=== PATIENT | male | born 1980 | race Caucasian/White ===

== ENCOUNTER 2017-05-01 19:02 | Emergency (ER) | payer OTHER ==
--- NOTE | 2017-05-01 19:44 | ED Physician Documentation ---
PD HPI URI - Stated complaint Stated Complaint: L EAR PX - Chief complaint Chief Complaint: Heent - History obtained from History obtained from: Patient - History of Present Illness Timing - onset: How many days ago (6) Timing duration: Days (6) Timing details: Gradual onset, Still present (had left ear pain and fullness about a week after having flu-like/URI symptoms. Seen by PCP and Dx with ear infection and Rx Augmentin. He says he did not improved and is feeling worse pain today. Had some drainage from ear at initial visit and this has continued and gotten whiter/cloudier the past day.) Associated symptoms: Ear pain, Swollen nodes. No: Fever, Nasal congestion, Rhinorrhea, Sore throat, Dry cough Contributing factors: Sick contact (his son had Influenza a couple weeks ago and he presumed he had that 2 weeks ago and was improving from that when got the left ear pain start.) Improves by: No: Medication Similar symptoms before: Has not had sx before Recently seen: Clinic (6 days ago with Rx Augmentin for left OM.) Review of Systems Constitutional: denies: Fever Ears: reports: Loss of hearing, Ear pain, Drainage/discharge. denies: Tinnitus/ ringing Nose: denies: Rhinorrhea / runny nose, Congestion Throat: denies: Sore throat Respiratory: denies: Cough GI: denies: Nausea, Vomiting, Diarrhea Skin: denies: Rash, Lesions PD PAST MEDICAL HISTORY - Past Medical History Past Medical History: No - Past Surgical History Past Surgical History: Yes Ortho: Other HEENT: Tonsil/Adenoidectomy - Present Medications Home Medications: Ambulatory Orders Medication Instructions Recorded Confirmed Amox/Clav 875/125 [Augmentin] 1 each PO Q12H 05/01/17 05/01/17 Dexamethasone [Decadron] 4 mg PO DAILY #5 tablet 05/01/17 Doxycycline Monohydrate 100 mg PO BID #14 tablet 05/01/17 HYDROcod/ACETAM 5/325 [[place] 5/325] 1 tab PO Q6H PRN #15 tablet 05/01/17 - Allergies Allergies/Adverse Reactions: Allergies Allergy/AdvReac Type Severity Reaction Status Date / Time No Known Drug Allergies Allergy Verified 05/01/17 19:08 - Social History Does the pt smoke?: No Smoking Status: Never smoker Does the pt drink ETOH?: Yes Does the pt have substance abuse?: No - Immunizations Immunizations are current?: Yes PD ED PE NORMAL - Vitals Vital signs reviewed: Yes - General General: Alert and oriented X 3, Well developed/nourished - HEENT HEENT: Pharynx benign, Other (no tenderness at the mastoid area. ). No: Ears normal (right is okay; left has some swelling of the canal, with purulent discharge coming from the TM, but view of TM is obscured. ) - Neck Neck: Supple, no meningeal sign, Other (left preauricular adenopathy, 1 cm. ) - Cardiac Cardiac: RRR, No murmur - Respiratory Respiratory: Clear bilaterally - Derm Derm: Normal color, Warm and dry, No rash - Neuro Neuro: Alert and oriented X 3, No motor deficit, Normal speech Results - Vitals Vitals: Vital Signs - 24 hr 05/01/17 05/01/17 19:06 20:29 Temperature 36.9 C 36.6 C Heart Rate 81 82 Respiratory 18 20 Rate Blood Pressure 153/95 H 142/89 H O2 Saturation 98 97 Oxygen O2 Source Room air PD MEDICAL DECISION MAKING - ED course Complexity details: considered differential (some swelling of the canal, but mostly some purulent diacharge coming from TM area. It obscures the vision of the TM. ), d/w patient Departure - Departure Disposition: 01 Home, Self Care Clinical Impression: Otitis media Qualifiers: Otitis media type: suppurative Chronicity: acute Laterality: left Recurrence: not specified as recurrent Spontaneous tympanic membrane rupture: with spontaneous rupture Qualified Code(s): H66.012 - Acute suppurative otitis media with spontaneous rupture of ear drum, left ear Condition: Stable Record reviewed to determine appropriate education?: Yes Instructions: ED Otitis Media Acute Adult Follow-Up: [facility] [Provider Group] Prescriptions: Dexamethasone [Decadron] 4 mg PO DAILY #5 tablet Doxycycline Monohydrate 100 mg PO BID #14 tablet HYDROcod/ACETAM 5/325 [[place] 5/325] 1 tab PO Q6H PRN #15 tablet PRN Reason: Pain Comments: Stop the Augmentin as it does not seem to be helping. Switch to doxycycline twice daily for a week. Add dexamethasone steroid anti-inflammatory daily for 5 more days. Continue the ibuprofen he been taking 3 times a day. To that add Tylenol or hydrocodone if needed for pain. Use the Cortisporin eardrops 2 or 3 drops at a time 3 or 4 times a day for the next several days as well. Follow- up with your primary care in the next 2-3 days if not readily improving. Off work tomorrow. Forms: Activity restrictions Discharge Date/Time: 05/01/17 20:34
[2017-05-01] MEDS ORDERED: DEXAMETHASONE 10 MG/ML VIAL PO STA (20:01)
[2017-05-01] MEDS ORDERED: NEOMYCIN/POLYMYX/HC OTIC DROPS LEFTEAR STA (20:01)
[2017-05-01] MEDS ORDERED: HYDROcod/ACET 5/325 Prepack 4 PO STA (20:01)
[2017-05-01] MEDS ORDERED: DOXYCYCLINE 100 MG TABLET PO STA (20:01)
[2017-05-01] MEDS ORDERED: CHERRY SYRUP 10 ML UDC PO ONE (20:19)
[2017-05-01 20:29] VITALS: BP 142/89
[2017-05-01] MEDS ORDERED: DOXYCYCLINE 100 MG TABLET PO ONE (20:33)
== END 2017-05-01 20:34 | disposition home or self-care (01) ==
LOC: ED 19:02
DX: H66.012 Acute suppurative otitis media with spontaneous rupture of ear drum, left ear (principal)
CPT/HCPCS: 99283; A9270